=== PATIENT | male | born 1995 | race Caucasian/White ===

== ENCOUNTER 2017-01-18 09:34 | Emergency (ER) | payer SELFPAY ==
[2017-01-18 09:40] VITALS: BP 131/84
--- NOTE | 2017-01-18 09:49 | ER Document Report ---
ED General - General Chief Complaint: Rectal Pain Stated Complaint: RECTAL BLEEDING Notes: Patient is a 21-year-old male with past medical history of recurrent rectal hemorrhoids who presents with to rectal hemorrhoids which she states will not resolve. These have been present for the past 4 days. Describes a dull, constant, throbbing pain to the area that is worsened by bowel movements or standing. States he's been trying [id number] perforation H with minimal improvement of symptoms. He has not seen his primary care doctor regarding today's concerns. States that he has regular bowel movements but that they can be firm. He has had a scant amount of bleeding from some of these hemorrhoids. He denies any abdominal pain, melena or hematochezia. No vomiting. He has not had any fever or erythema spreading from the area TRAVEL OUTSIDE OF THE [place] IN LAST 30 DAYS: No - Related Data Allergies/Adverse Reactions: No Known Allergies Allergy (Unverified 01/18/17 09:39) Past Medical History - General Information source: Patient - Social History Smoking Status: Current Every Day Smoker Frequency of alcohol use: Occasional Drug Abuse: None Lives with: Spouse/Significant other Family History: Reviewed & Not Pertinent Patient has suicidal ideation: No Patient has homicidal ideation: No Renal/ Medical History: Denies: Hx Peritoneal Dialysis Review of Systems - Review of Systems Notes: Constitutional: Negative for fever. HENT: Negative for sore throat. Eyes: Negative for visual changes. Cardiovascular: Negative for chest pain. Respiratory: Negative for shortness of breath. Gastrointestinal: Negative for abdominal pain, vomiting or diarrhea. Positive for hemorrhoids Genitourinary: Negative for dysuria. Musculoskeletal: Negative for back pain. Skin: Negative for rash. Neurological: Negative for headaches, weakness or numbness. 10 point ROS negative except as marked above and in HPI. Physical Exam - Vital signs Vitals: Temp Pulse Resp BP Pulse Ox 98.3 F 109 H 22 H 131/84 H 98 01/18/17 09:38 01/18/17 09:38 01/18/17 09:38 01/18/17 09:38 01/18/17 09:38 Interpretation: Tachycardic Notes: PHYSICAL EXAMINATION: GENERAL: Well-appearing, well-nourished and in no acute distress. HEAD: Atraumatic, normocephalic. EYES: sclera anicteric, conjunctiva are normal. ENT: Moist mucous membranes. NECK: Normal range of motion LUNGS: Normal work of breathing HEART: 2+ radial pulses bilaterally Abdomen: No focal tenderness rebound or guarding Rectal: There are 2 nonthrombosed hemorrhoids without erythema or purulent drainage EXTREMITIES: no pitting or edema. No cyanosis. NEUROLOGICAL: No focal neurological deficits. Moves all extremities spontaneously and on command. PSYCH: Normal mood, normal affect. SKIN: Warm, Dry, normal turgor, no rashes or lesions noted. Course - Re-evaluation Re-evalutation: 01/18/17 09:48 Presentation is most consistent with uncomplicated external hemorrhoids. No evidence of thrombosis. I have recommended conservative management at home, will provide a work note.At this time will discharge with return precautions and follow-up recommendations. Verbal discharge instructions given a the bedside and opportunity for questions given. Medication warnings reviewed. Patient is in agreement with this plan and has verbalized understanding of return precautions and the need for primary care follow-up in the next 24-72 hours. - Vital Signs Vital signs: Temp Pulse Resp BP Pulse Ox 98.3 F 109 H 22 H 131/84 H 98 01/18/17 09:38 01/18/17 09:38 01/18/17 09:38 01/18/17 09:38 01/18/17 09:38 Discharge - Discharge Clinical Impression: External hemorrhoids Condition: Good Disposition: HOME, SELF-CARE Additional Instructions: You were seen today for hemorrhoids. The best treatment is to avoid straining while having bowel moments, avoiding heavy lifting, or any other activity that causes you to bear down forcefully. You need to make sure that your stools are soft and should start taking Docusate 200mg in the morning and at night until your stools are very soft and you can have a bowel movement without any straining. You can also soak in warm water, apply topical hemorrhoid cream that can be purchased at the store, and take tylenol or ibuprofen per box instructions as needed for pain. Please follow-up with your primary doctor. Return if you begin to have persistent bleeding, worsening pain, abdominal pain , fever >101, or any other symptoms that are concerning to you.
== END 2017-01-18 09:52 | disposition home or self-care (01) ==
LOC: ER 09:34
DX: K64.4 Residual hemorrhoidal skin tags (principal); F17.200 Nicotine dependence, unspecified, uncomplicated; R00.0 Tachycardia, unspecified
CPT/HCPCS: 99283

== ENCOUNTER 2019-06-09 07:38 | Emergency (ER) | payer SELFPAY ==
[2019-06-09 07:58] VITALS: BP 126/94
--- NOTE | 2019-06-09 08:28 | ER Document Report ---
HPI - HPI Time Seen by Provider: 06/09/19 08:06 Pain Level: 1 Notes: Patient is a 24-year-old male with no significant past medical history who presents complaining of nasal congestion/discharge, some productive cough, occasional body ache for the past 6 days. Patient states that he does smoke cigarettes and on occasion will feel little wheezy. He is able to eat and drink without difficultly. He is urinating normally. No other concerns or complaints at this time. Denies any headache, current fever, neck pain, sore throat, chest pain, palpitations, syncope, shortness of breath, dyspnea, abdominal pain, nausea/vomiting/diarrhea, urinary retention, dysuria, hematuria, or rash. - ROS Systems Reviewed and Negative: Yes All other systems reviewed and negative - EENT EENT: REPORTS: Ear Pain - NEURO Neurology: REPORTS: Headache, Dizzinesss / Vertigo - intermittent - RESPIRATORY Respiratory: REPORTS: Coughing Past Medical History - Social History Smoking Status: Current Every Day Smoker Frequency of alcohol use: None Drug Abuse: None Family History: Reviewed & Not Pertinent Patient has suicidal ideation: No Patient has homicidal ideation: No Renal/ Medical History: Denies: Hx Peritoneal Dialysis Past Surgical History: Reports: Hx Oral Surgery - wisdom teeth removal, Hx Orthopedic Surgery - ankle surgery, Hx Tonsillectomy Vertical Provider Document - CONSTITUTIONAL Agree With Documented VS: Yes Notes: PHYSICAL EXAMINATION: GENERAL: Well-appearing, well-nourished and in no acute distress. A&Ox4. Answers questions appropriately. Moves comfortably w/o notable distress HEAD: Atraumatic, normocephalic. EYES: Pupils equal round and reactive to light, extraocular movements intact, sclera anicteric, conjunctiva are normal. ENT: EAC clear b/l. TM's intact b/l without erythema, fluid, or perforation. Nares patent and with clear discharge. oropharynx no erythema without exudates. Tonsils absent. No palatine shift. Uvula midline. No tongue protrusion. No drooling, hoarseness, or airway compromise. Moist mucous membranes. No sinus tenderness. NECK: Normal range of motion, supple without lymphadenopathy. No rigidity/meningismus. LUNGS: Breath sounds clear to auscultation bilaterally and equal. No wheezes rales or rhonchi. No retractions HEART: Regular rate and rhythm without murmurs, rubs, gallops. NEUROLOGICAL: Normal speech, normal gait. PSYCH: Normal mood, normal affect. SKIN: Warm, Dry, normal turgor, no rashes or lesions noted. - INFECTION CONTROL TRAVEL OUTSIDE OF THE [place] IN LAST 30 DAYS: No Course - Re-evaluation Re-evalutation: 06/09/19 08:25 Patient is an afebrile, well-hydrated, 24-year-old male who presents to the ED with acute URI, suspect viral. Vitals are acceptable. PE is otherwise unremarkable. No labs or imaging warranted at this time based on H&P. Patient has no significant cardiopulmonary or immunocompromised medical conditions. Patient's lungs are clear to auscultation bilaterally without tachycardia, hypoxia, or tachypnea. Patient is tolerating p.o. without any difficulties. Low suspicion for any meningitis, sepsis, peritonsillar/pharyngeal abscess, respiratory compromise, severe dehydration, or other emergent systemic condition at this time. Patient is aware this condition can change from initial presentation and he needs to monitor symptoms closely. Reviewed no antibiotic rx at this time. Consider with ongoing/worsening symptoms with re-eval. Rx for tessalon/inhaler. Conservative measures otherwise for symptoms. Recheck with your PCM in 3-5 days. Return to the ED with any worsening/concerning symptoms otherwise as reviewed in discharge. Patient is in agreement. - Vital Signs Vital signs: Temp Pulse Resp BP Pulse Ox 98.5 F 94 126/94 H 96 06/09/19 07:46 06/09/19 07:46 06/09/19 07:46 06/09/19 07:46 Discharge - Discharge Clinical Impression: Acute URI Condition: Stable Disposition: HOME, SELF-CARE Additional Instructions: Maintain adequate fluid intake tylenol/ibuprofen as needed alternating every 3 hours for fever/body ache over the counter cold medication as needed for symptoms Humidified air may help Wash your hands regularly Wear a mask when coughing F/u: with your PCM in 3-5 days for a recheck Return to the ED with any fever, altered mental status/behavior, chest pain, palpitations, syncope, headache, neck pain/stiffness, shortness of breath, chest pains, wheezing, drooling, trouble swallowing/breathing, abdominal pain, n/v/d, rash, or worsening/concerning symptoms otherwise. Prescriptions: Benzonatate [Tessalon Perle 100 mg Capsule] 100 mg PO Q8HP PRN #15 cap PRN Reason: Albuterol Sulfate [Proair HFA Inhalation Aerosol 8.5 gm MDI] 2 puff IH Q4H PRN #1 mdi PRN Reason: Forms: Elevated Blood Pressure, Smoking Cessation Education, Return to Work Referrals: [facility] [Provider Group] - Follow up as needed
== END 2019-06-09 08:37 | disposition home or self-care (01) ==
LOC: ER 07:38
DX: J06.9 Acute upper respiratory infection, unspecified (principal); R09.81 Nasal congestion; R09.89 Other specified symptoms and signs involving the circulatory and respiratory systems; R05 Cough; M79.10 Myalgia, unspecified site; F17.210 Nicotine dependence, cigarettes, uncomplicated
CPT/HCPCS: 99283

== ENCOUNTER 2019-12-02 15:06 | Emergency (ER) | payer SELFPAY ==
[2019-12-02 15:12] VITALS: BP 149/89
[2019-12-02] MEDS ORDERED: AMOXICILLIN TR/POT CLAVULANATE 875-125 MG TAB PO ONE (15:16)
[2019-12-02] MEDS ORDERED: DIPH/PERTUSS(ACELL)/TETANUS VAC/PF 0.5 ML SYR (>=10YO) IM ONE (15:16)
--- NOTE | 2019-12-02 15:16 | ER Document Report ---
ED Medical Screen (RME) - General Chief Complaint: Dog Bite Stated Complaint: DOG BITE Time Seen by Provider: 12/02/19 15:13 Mode of Arrival: Ambulatory Information source: Patient Notes: 24-year-old male presented to ED for complaint of dog bite to the upper lower lip and the left middle finger. He states he went to pet his dog and her elbow but was underneath of her so she reached up and bit his bottom and top lip and left middle finger. The laceration to the lips do cross the vermilion border. Patient is alert oriented respirations regular nonlabored at this time. He does not know for sure of date of his last tetanus shot. He will be getting 1 now. Also will be getting Augmentin at this time. He will need sutures to his face. I have greeted and performed a rapid initial assessment of this patient. A comprehensive ED assessment and evaluation of the patient, analysis of test results and completion of medical decision making process will be conducted by an additional ED providers. TRAVEL OUTSIDE OF THE [place] IN LAST 30 DAYS: No - Related Data Allergies/Adverse Reactions: codeine [Codeine] Allergy (Verified 01/30/15 11:54) hydrocodone [Hydrocodone] Adverse Reaction (Verified 12/28/15 11:53) VOMITING Past Medical History Renal/ Medical History: Denies: Hx Peritoneal Dialysis Past Surgical History: Reports: Hx Oral Surgery - wisdom teeth removal, Hx Orthopedic Surgery - ankle surgery, Hx Tonsillectomy Physical Exam - Vital signs Vitals: Temp Pulse Resp BP Pulse Ox 98.2 F 104 H 24 H 149/89 H 95 12/02/19 15:10 12/02/19 15:10 12/02/19 15:10 12/02/19 15:10 12/02/19 15:10 Course - Vital Signs Vital signs: Temp Pulse Resp BP Pulse Ox 98.2 F 104 H 24 H 149/89 H 95 12/02/19 15:10 12/02/19 15:10 12/02/19 15:10 12/02/19 15:10 12/02/19 15:10
--- NOTE | 2019-12-02 15:45 | RADIOLOGY REPORT (SQ) ---
EXAM DESCRIPTION: FINGER LEFT COMPLETED DATE/TIME: 12/02/2019 3:32 pm REASON FOR STUDY: Dog bite left middle finger COMPARISON: None. NUMBER OF VIEWS: Three views. TECHNIQUE: AP, lateral, and oblique images acquired of the left third finger. LIMITATIONS: None. FINDINGS: MINERALIZATION: Normal. BONES: No acute fracture or dislocation. No worrisome bone lesions. SOFT TISSUES: No soft tissue swelling. No foreign body. OTHER: No other significant finding. IMPRESSION: NO RADIOGRAPHIC EVIDENCE OF ACUTE INJURY. TECHNICAL DOCUMENTATION: JOB ID: [id number] 2010 [email or web address]- All Rights Reserved Reading location - IP/workstation name: [email or web address]
[2019-12-02] MEDS ORDERED: ACETAMINOPHEN 325 MG TABLET PO ONE (15:58)
--- NOTE | 2019-12-02 17:41 | ER Document Report ---
ED Animal Bite - General Chief Complaint: Dog Bite Stated Complaint: DOG BITE Time Seen by Provider: 12/02/19 15:13 Primary Care Provider: [facility] [Provider Group] - Follow up as needed [facility] [Provider Group] - Follow up as needed Mode of Arrival: Ambulatory Notes: Patient is a 24-year-old male who presents to the emergency department after a dog bite by his own dog. He was bitten on the lower lip and on his left third finger. Patient was unsure if he was up-to-date on his immunizations and was given a tetanus vaccine in triage. Patient states that the dog is up-to-date on their immunizations. The dog did not appear rabid. The dog is actually the patient's pet. Patient is able to flex all digits with no difficulty. Patient denies any shortness of breath or difficulty breathing. TRAVEL OUTSIDE OF THE [place] IN LAST 30 DAYS: No - Related Data Allergies/Adverse Reactions: codeine [Codeine] Allergy (Verified 01/30/15 11:54) hydrocodone [Hydrocodone] Adverse Reaction (Verified 12/28/15 11:53) VOMITING Past Medical History - General Information source: Patient - Social History Smoking Status: Current Every Day Smoker Frequency of alcohol use: Occasional Family History: Reviewed & Not Pertinent Patient has suicidal ideation: No Patient has homicidal ideation: No Renal/ Medical History: Denies: Hx Peritoneal Dialysis Past Surgical History: Reports: Hx Oral Surgery - wisdom teeth removal, Hx Orthopedic Surgery - ankle surgery, Hx Tonsillectomy Review of Systems - Review of Systems Notes: REVIEW OF SYSTEMS: CONSTITUTIONAL : Denies recent illness. Denies recent unintentional weight loss. Denies fever, chills, or sweats. HEENT: Denies eye, ear, throat, or mouth pain, discharge, or symptoms. Denies nasal or sinus congestion. See HPI. CARDIOVASCULAR: Denies chest pain. RESPIRATORY: Denies shortness of breath, cough, congestion, difficulty breathing, or wheezing. GASTROINTESTINAL: Denies nausea, vomiting, and diarrhea. Denies abdominal pain. Denies constipation. GENITOURINARY: Denies difficulty urinating, burning, blood in urine, urgency or frequency. MUSCULOSKELETAL: Denies neck and back pain. See HPI. SKIN: Denies rash, itchiness. See HPI. HEMATOLOGIC : Denies easy bruising or bleeding. LYMPHATIC: Denies swollen, painful, enlarged glands. NEUROLOGICAL: Denies no numbness or tingling denies weakness. Denies headache. Denies altered mental status. Denies alteration in speech. PSYCHIATRIC: Denies stress, anxiety, alteration in sleep patterns, or depression. All other systems reviewed and negative. Physical Exam - Vital signs Vitals: Temp Pulse Resp BP Pulse Ox 98.2 F 104 H 24 H 149/89 H 95 12/02/19 15:10 12/02/19 15:10 12/02/19 15:10 12/02/19 15:10 12/02/19 15:10 - Notes Notes: PHYSICAL EXAMINATION: GENERAL: Appears well, healthy, well-nourished, no acute distress. HEAD: Normocephalic, 3 mm puncture laceration noted to mid lower lip. EYES: PERRL, conjunctiva normal, all extraocular movements intact, sclera nonicteric ENT: Moist mucous membranes. NECK: Supple, no noticeable swelling, redness, rash. Normal range of motion. LUNGS: Equal breath sounds bilaterally and clear to auscultation. No wheezes rales or rhonchi. CARDIOVASCULAR: S1-S2, regular rate, regular rhythm. Radial pulses 2+, normal. ABDOMEN: Normoactive bowel sounds. Soft, nontender, no guarding, no rebound tenderness, and no masses palpated. EXTREMITIES: Normal strength and range of motion, no pitting or edema. No cyanosis. NEUROLOGICAL: Moves all extremities upon command. Strength 5/5 in all extremities. PSYCH: Normal mood, normal affect. SKIN: Warm, dry. Abrasions noted to left third finger from dog bite. Normal skin turgor. Course - Re-evaluation Re-evalutation: 12/02/19 17:38 Patient's finger x-ray is negative for any acute fracture. Patient will be started on Augmentin for the dog bite. The laceration noted to his lip is 3 mm and due to this being a dog bite, it will be left open for appropriate changes which if needed. Laceration is NOT at the vermilion border. It is below it. The laceration does not puncture all the way through his lip. Inner lip is still intact. Patient has been instructed on cleansing his wounds twice a day. I have a low suspicion for a tendon rupture, as the patient is able to flex and extend all digits with no difficulty. He will start ibuprofen and Tylenol for pain relief. Follow-up precautions were given. Verbal discharge instructions were given to the patient. They verbalized understanding. They are stable for discharge. - Vital Signs Vital signs: Temp Pulse Resp BP Pulse Ox 98.2 F 104 H 24 H 149/89 H 95 12/02/19 15:10 12/02/19 15:10 12/02/19 15:10 12/02/19 15:10 12/02/19 15:10 Discharge - Discharge Clinical Impression: Finger pain, left Dog bite Qualifiers: Encounter type: initial encounter Qualified Code(s): W54.0XXA - Bitten by dog, initial encounter Lip laceration Qualifiers: Encounter type: initial encounter Qualified Code(s): S01.511A - Laceration without foreign body of lip, initial encounter Condition: Stable Disposition: HOME, SELF-CARE Instructions: Prophylactic Antibiotic ([facility]), Soap Cleansing ([facility]), Tetanus Immunization Given ([facility]) Additional Instructions: Please monitor very closely for any signs of infection from your dog bite including spreading redness from the area, pus from the wound, or worsening pain. Clean the area twice daily with soap and water and then apply topical antibiotic ointment, such as Neosporin. Please take all the antibiotics that you were prescribed until they are gone. Follow-up with your primary care physician as needed. Prescriptions: Amoxicillin/Potassium Clav [Augmentin 875-125 Tablet] 1 tab PO BID #14 tab Forms: Return to Work Referrals: [facility] [Provider Group] - Follow up as needed [facility] [Provider Group] - Follow up as needed
== END 2019-12-02 17:53 | disposition home or self-care (01) ==
LOC: ER 15:06
DX: S01.551A Open bite of lip, initial encounter (principal); S60.473A Other superficial bite of left middle finger, initial encounter; W54.0XXA Bitten by dog, initial encounter; Z23 Encounter for immunization; F17.200 Nicotine dependence, unspecified, uncomplicated; Z88.6 Allergy status to analgesic agent; Z88.5 Allergy status to narcotic agent
CPT/HCPCS: 99283; 90471; 73140; 90715; J3490